=== PATIENT | male | born 1965 | race Caucasian/White ===

== ENCOUNTER 2024-05-02 15:24 | Emergency (ER) | payer MEDICAID ==
[~2024-05-02] VITALS: Ht 172.7 cm; Wt 78.0 kg
[2024-05-02 15:59] VITALS: O2SAT 99
[2024-05-02] MEDS ORDERED: IBUP-2028 MT (21:43)
[2024-05-02] MEDS ORDERED: ONDA-239 PO (21:43)
[2024-05-02 22:40] VITALS: BP 117/78; PULSE 70; RESP 16; TEMP 36.89184; O2SAT 99
== END 2024-05-02 22:45 | disposition home or self-care (01) ==
LOC: ER 15:24
DX: R11.2 Nausea with vomiting, unspecified (principal)
CPT/HCPCS: 71045; 99283